=== PATIENT | male | born 1970 | race Hispanic/Latino ===

== ENCOUNTER 2019-10-31 09:39 | Inpatient (IN) | payer SELFPAY ==
[~2019-10-31 09:39] MED LIST: Lidocaine 1% PF 5 ML VIAL ONE; PROPOFOL 200 MG/20 ML VIAL ONE; Succinylcholine Chloride 20 MG/ML 10 ml SYRINGE FS ONE
[2019-10-31] MEDS ORDERED: Pantoprazole 80 MG, Admixture Fee 1 EACH in Sodium Chloride 0.9% 100 ML IVPB SCH (10:15)
[2019-10-31] MEDS ORDERED: Octreotide Acetate 1,250 MCG in Sodium Chloride 0.9% 250 ML 250 ML IVPB SCH (10:15)
--- NOTE | 2019-10-31 10:15 | RAD ---
Exam: Chest one view HISTORY:Upper GI bleed Comparison: None FINDINGS: Cardiac silhouette: Normal Aorta: Unremarkable Pulmonary vessels: Normal Costophrenic angles: Clear LUNGS: No masses or consolidation. Pneumothorax: None Osseous abnormalities: None IMPRESSION: No acute cardiopulmonary process.
[2019-10-31 10:25] LABS: INR-International Normal Ratio 1.5; PTT 32.2 sec (22.9-36.1); Prothrombin Time 17.9 sec (12.0-14.7)
[2019-10-31 10:42] LABS: ALT (SGPT) 18 U/L (8-55); AST (SGOT) 71 U/L (5-34); Acetaminophen Less than 6.0 mcg/mL (10.0-30.0); Albumin 3.2 g/dL (3.5-5.0); Alcohol Less than 10 mg/dL (Less than 10); Alkaline Phosphatase 170 U/L (40-110); Anion Gap 10 mmol/L (10-20); BUN (Urea Nitrogen) 13 mg/dL (8.4-25.7); Bilirubin, Total 1.6 mg/dL (0.2-1.2); CK (CPK) 99 U/L (30-200); Calc. Creatinine Clearance 0 mL/min (70-130); Calcium 7.9 mg/dL (7.8-10.44); Carbon Dioxide 23 mmol/L (22-29); Chloride 110 mmol/L (98-107); Estimated GFR-MDRD Greater than 90; Globulin 3.6 g/dL (2.4-3.5); Glucose 141 mg/dL (70-105); Lipase 18 U/L (8-78); Potassium 3.4 mmol/L (3.5-5.1); Protein, Total 6.8 g/dL (6.0-8.3); Salicylate Less than 8.0 mg/dL (15.0-30.0); Sodium 140 mmol/L (136-145)
[2019-10-31 10:43] LABS: Band 11 % (5-11); Hypochromia MODERATE=16-30 cells (100X) (0-5/hpf); Lymphocytes 11 % (21-51); MDiff Complete? YES; Mean Corpuscular Hemoglobin 25.1 pg (27.0-31.0); Mean Corpuscular Volume 81.2 fL (78.0-98.0); Mean Platelet Volume 10.3 fL (7.4-10.4); Monocytes 17 % (0-10); Neutrophil 61 % (42-75); Ovalocytes SLIGHT = 2-5 cells (100X) (0-1/hpf); Platelet Count 69 thou/uL (130-400); Platelet Morphology Comment Appears Decreased; Polychromasia SLIGHT = 2-3 cells (100X) (0-2/hpf); RBC Distribution Width 16.6 % (11.5-14.5); Red Blood Cell (RBC) Count 2.79 mill/uL (4.70-6.10); White Blood Cell (WBC) Count 4.9 thou/uL (4.8-10.8)
[2019-10-31 10:54] LABS: Bilirubin Negative (Negative); Blood, Urine Negative (Negative); Clarity Clear (Clear); Glucose, Urine (Dipstick) Normal (Negative); Ketone, Urine Negative (Negative); Leukocyte Negative Leu/uL (Negative); Nitrite Negative (Negative); Protein, Urine (Dipstick) Negative (Neg-Trace); Specific Gravity, Urine 1.034 (1.002-1.036); Urobilinogen Normal mg/dL (Less than 2)
[2019-10-31 11:07] LABS: Amphetamine Not Detected (NotDetected); Barbiturates Screen Not Detected (NotDetected); Benzodiazepine Screen Not Detected (NotDetected); Cocaine Metabolite Screen Not Detected (NotDetected); Medtox Control Line Valid? VALID (VALID); Medtox Reader # READER 4; Methadone Not Detected (NotDetected); Methamphetamine Not Detected (NotDetected); Opiate Screen Not Detected (NotDetected); Oxycodone Screen Not Detected (NotDetected); Phencyclidine (PCP) Not Detected (NotDetected); THC/Cannabinoid Screen Not Detected (NotDetected); Tricyclic Screen Not Detected (NotDetected)
[2019-10-31] MEDS ORDERED: Ondansetron PF 4 MG/2 ML Vial IVP PRN (11:35)
[2019-10-31] MEDS ORDERED: Bisacodyl 5 MG TAB PO PRN (11:35)
[2019-10-31] MEDS ORDERED: Multivitamins, Adult 10 ML, Folic Acid 1 MG, Thiamine HCl 100 MG in Dextrose 5 %-0.45 %... IV SCH (11:45)
[2019-10-31] MEDS: Multivitamins, Adult 10 ML, Folic Acid 1 MG, Thiamine HCl 100 MG in Dextrose 5 %-0.45 %... IV SCH (13:32)
[2019-10-31 14:10] LABS: Hemoglobin 6.7 g/dL (14.0-18.0)
[2019-10-31 14:17] VITALS: BMI 27.6
[2019-10-31] MEDS ORDERED: SUGAMMADEX SODIUM 200 MG/2 ML VIAL ONE (15:49)
--- NOTE | 2019-10-31 18:03 | HP ---
PRIMARY CARE PHYSICIAN: None. CHIEF COMPLAINT: "I was vomiting blood." HISTORY OF PRESENT ILLNESS: The patient is a 49-year-old male with no known past medical history, who presented to the ER in [place] after vomiting 8 times since 3:00 p.m. yesterday, bright red blood that then turned to a darker red. He states that he is also having abdominal pain. He denies any blood in his stool. He has not eaten any food in the past 2 days, denies any appetite. He states that he has had no sick contacts. He has not had any syncopal episodes, no chest pain, no associated shortness of breath. While in the [place] ER, it was charted that his hemoglobin was 5, they administered 2 units of blood and he had a CT of the abdomen which showed varicosities and cirrhosis and he was started on octreotide , given Rocephin and a Protonix drip was started and then he was transferred to [place]. In the ER today in [place] his vital signs have been stable; he had a negative drug screen. Urinalysis did not show anything acute for a urinary tract infection. Troponin was negative. They completed further lab work and a chest x-ray. In the ER in [place] he had a banana bag started, oxtreotide 50 mcg infusion, and Protonix 8 mg infusion. PAST MEDICAL HISTORY: None. PAST SURGICAL HISTORY: None. ALLERGIES: NO KNOWN DRUG ALLERGIES. MEDICATIONS: The patient does not currently take any medications. SOCIAL HISTORY: The patient lives at home with his . He is a final touch up painter. He denies any drug or tobacco use. He states that he drinks 3 tall beers per day. REVIEW OF SYSTEMS: All other review of systems are negative unless noted in the HPI. PHYSICAL EXAMINATION: VITAL SIGNS: Blood pressure 163/93, pulse 65, respiratory rate 16, temperature 98.9 orally , no pain, O2 saturations 100% on room air. GENERAL: The patient in no acute distress. HEENT: Head; atraumatic, normocephalic. PERRLA. Extraocular muscles intact. Sclerae are normal. Mouth; normal, moist mucosa. NECK: Trachea midline. No JVD. No lymphadenopathy. RESPIRATORY: Clear to auscultation bilaterally. Normal chest, symmetrical rise. No wheezes. No rhonchi. No rales. CARDIOVASCULAR: Regular rate and rhythm. No murmurs. No rubs or gallops. ABDOMEN: Bowel sounds normal. Moderate distention. No pulsatile masses. Slight tenderness upon deep palpation to the left upper quadrant. No hepatomegaly. EXTREMITIES: No cyanosis. No clubbing. No edema. SKIN: Warm and dry. Normal color. DIAGNOSTIC DATA: EKG, sinus rhythm, heart rate 73. Chest x-ray, no acute cardiopulmonary process. Labs in the [place] ER: Negative drug screen, unremarkable UA, negative troponin, white blood cells 4.9, hemoglobin 7, hematocrit 22.7, and platelets 69, bands 11, lipase 18, CK 99, sodium 140, potassium 3.4, chloride 110, BUN 13, creatinine 0.67, GFR greater than 90, glucose 141, bilirubin 1.6, albumin 3.2, AST 71, and alkaline phosphatase 170. PTT 32.2, prothrombin time 17.9, INR 1.5. Ammonia 65. IMPRESSION AND PLAN: 1. Gastrointestinal bleed with hematemesis. GI has been consulted to come see the patient. He is to receive 2 more units of blood. He is on octreotide and Protonix drip along with receiving a banana bag at this time. We will continue to monitor vital signs. He will be monitored on telemetry. 2. Daily alcohol use. We will monitor the patient for withdrawal symptoms using ASE protocol and follow lab work during duration of stay. 3. Acute anemia. We will trend H and H's along with receiving the 2 units of blood that has been ordered now. 4. Gastrointestinal and deep venous thrombosis prophylaxis in place. The patient wishes to be a full code. Surrogate decision maker is his , Linda Brannon. The patient has been discussed with Dr. Mckeon. Job ID: [id number] [facility]ENTER[facility]i
[2019-10-31] MEDS: Pantoprazole 80 MG in Sodium Chloride 0.9% 100 ML IVPB SCH (21:56)
[2019-11-01] MEDS: Octreotide Acetate 1,250 MCG in Sodium Chloride 0.9% 250 ML 250 ML IVPB SCH ×2 (01:38→15:48)
[2019-11-01 05:12] LABS: #Basophils 0.1 thou/uL (0.0-0.2); #Eosinphils 0.1 thou/uL (0.0-0.7); #Lymphocytes 0.8 thou/uL (1.20-3.40); #Monocytes 0.6 thou/uL (0.11-0.59); #Neutrophils 3.6 thou/uL (1.40-6.50); %Lymphocytes 16.1 % (21.0-51.0); %Monocytes 11.4 % (0.0-10.0); %Neutrophils 70.4 % (42.0-75.0); Hemoglobin 8.3 g/dL (14.0-18.0); Mean Corpuscular HGB CONC 32.3 g/dL (32.0-36.0); Mean Corpuscular Hemoglobin 26.4 pg (27.0-31.0); Mean Corpuscular Volume 81.7 fL (78.0-98.0); Mean Platelet Volume 11.3 fL (7.4-10.4); Platelet Count 66 thou/uL (130-400); RBC Distribution Width 16.6 % (11.5-14.5); Red Blood Cell (RBC) Count 3.16 mill/uL (4.70-6.10); White Blood Cell (WBC) Count 5.1 thou/uL (4.8-10.8)
[2019-11-01 05:23] LABS: Anion Gap 10 mmol/L (10-20); BUN (Urea Nitrogen) 10 mg/dL (8.4-25.7); Calc. Creatinine Clearance 143 mL/min (70-130); Calcium 7.8 mg/dL (7.8-10.44); Carbon Dioxide 21 mmol/L (22-29); Chloride 108 mmol/L (98-107); Estimated GFR-MDRD Greater than 90; Glucose 128 mg/dL (70-105); Potassium 3.2 mmol/L (3.5-5.1); Sodium 136 mmol/L (136-145)
--- NOTE | 2019-11-01 07:27 | CON ---
DATE OF CONSULTATION: 10/31/2019 REFERRING PHYSICIAN: Dr. Joel Mckeon. REASON FOR CONSULTATION: Hematemesis, anemia due to blood loss. HISTORY OF PRESENT ILLNESS: Mr. Shaquille Amin is a 49-year-old Latin-Comor[place] male, who had not seen a doctor for more than 10 years. The patient had no prior history of liver disease, heart disease, diabetes. He has not seen a doctor for the last 10 years. The patient does not take any medications at home. The patient does drink alcohol at least 3 cans of beer every day. The cans are very large and each can is about 25 ounces. Apparently, he has been doing this for many years. The patient had disease. The patient had an episode of nausea and vomiting and vomited some blood yesterday. He went initially to [place] [facility] and was seen by the ER MD. Abdominal CAT scan was done liver cirrhosis and also esophageal varices. The patient was anemic. He was given 1 unit of packed RBCs. As there was no GI available in [place], he was transferred to [facility] in [place]. The patient's blood count on arrival is hemoglobin 7. The patient has had no stool yesterday or today. The last negative stool was on Tuesday night. The patient never had any similar episodes in the past. The patient has no abdominal pain, no indigestion or any heartburn. No similar episodes in the past. There is no family history of liver disease. The patient had no relevant history. ALLERGIES: NO DRUG ALLERGIES. SOCIAL HISTORY: He does not smoke. Drinks alcohol three 25 ounce cans every day. No history of drug abuse. MEDICAL ILLNESSES: None. Denies history of any liver disease from before. Denies history of hepatitis in the past. No hypertension, diabetes, heart disease. PAST SURGICAL HISTORY: None. FAMILY HISTORY: Grandmother, diabetes mellitus. No family history of liver disease, any cancer, hypertension, diabetes.. REVIEW OF SYSTEMS: 10 point system review. CONSTITUTIONAL: No weight loss. No fever. Had good exercise tolerance. HEAD: No chronic headache, no dizziness. EYES: No diplopia. No impaired vision. EARS: No ear pain. No hearing loss. NOSE: No nosebleed. THROAT: No sore throat. LUNGS: No chronic coughing, hemoptysis, dyspnea. CARDIOVASCULAR: No chest pain. No palpitation. No dyspnea, orthopnea, PND. GI: As in history of present illness. : No dysuria or hematuria. MUSCULOSKELETAL: Not relevant. NEUROENDOCRINE: Not relevant. HEMATOLOGIC: Not relevant. PHYSICAL EXAMINATION: GENERAL: He is awake, alert, and communicative. The history was obtained through training generalist. He does not speak [place]. VITAL SIGNS: Temperature 99.1 degrees Fahrenheit, pulse is 69, blood pressure is 161/79. HEENT: Conjunctivae are clear. NECK: Supple. No adenitis or thyromegaly. CARDIOVASCULAR: Normal heart sounds. LUNGS: Clear to auscultation. ABDOMEN: Minimally tender over the epigastric area. There is no rebound or guarding. No organomegaly. No masses. Bowel sounds normal. EXTREMITIES: Reveal no edema. CENTRAL NERVOUS SYSTEM: Grossly within normal limits. LABORATORY DATA: On admission, WBC 4900, hemoglobin 7, hematocrit 22.7, MCV 81.2, platelet count is 69,000, polymorphs 61, bands 11, lymphocytes 11, monocytes 13. Repeat H and H at 1:43. Hemoglobin dropping to 6.7, hematocrit 20.4. Chemistry panel shows a BUN is normal at 13, potassium 3.4, chloride 110, creatinine is 0.67, glucose 141, calcium 7.9, bilirubin 1.6, AST 71, ALT 18, alkaline phosphatase 170. CPK is 99, albumin 3.2, lipase 18. Abdominal CAT scan done in the [place] ER showed evidence of liver cirrhosis and also esophageal varices. IMPRESSION: 1. A 49-year-old Latin-Comor[place] male with no prior history of any medical illnesses, presents with hematemesis and anemia. The patient had no prior history of liver disease. No prior history of hepatitis. The patient did drink alcohol heavy. He was drinking at least about 70 ounces of alcohol every day. He does have thrombocytopenia. CAT scan showing findings of liver cirrhosis. liver cirrhosis most likely from alcohol abuse. 2. Anemia due to blood loss. 3. Thrombocytopenia due to hypersplenism. RECOMMENDATION: 1. IV octreotide. 2. Transfuse 2 units of blood. 3. IV PPI. 4. EGD later on today and hopefully if still bleeding actively can probably some banding. This was explained to the patient through an training generalist. He is agreeable. Job ID: [id number]
[2019-11-01 07:46] LABS: Hemoglobin 8.1 g/dL (14.0-18.0)
[2019-11-01] MEDS: Pantoprazole 80 MG in Sodium Chloride 0.9% 100 ML IVPB SCH ×2 (09:27→19:51)
[2019-11-01] MEDS ORDERED: Potassium Chloride 40 MEQ in Premix Bag 1 BAG IVPB SCH (09:45)
[2019-11-01] MEDS: Multivitamins, Adult 10 ML, Folic Acid 1 MG, Thiamine HCl 100 MG in Dextrose 5 %-0.45 %... IV SCH (11:02)
[2019-11-01] MEDS: Potassium Chloride 20 MEQ in Premix Bag 1 BAG IVPB SCH ×2 (11:03→13:37)
--- NOTE | 2019-11-01 12:22 | OP ---
DATE OF PROCEDURE: 10/31/2019 OPERATIVE PROCEDURES: 1. Esophagogastroduodenoscopy. 2. Esophagogastroduodenoscopy with variceal banding. PREOPERATIVE DIAGNOSES: Gastrointestinal bleeding, anemia due to blood loss, and CT scan showing evidence of liver cirrhosis and esophageal varices. POSTOPERATIVE DIAGNOSES: 1. Two columns of 4+ varicosities in distal esophagus. 2. Portal hypertensive gastropathy. DESCRIPTION OF PROCEDURE: The patient was placed on his back and was given sedation and intubated by the Anesthesia Department. The patient was turned on his left lateral position. A bite block was placed. A Pentax video gastroscope under direct vision passed down the oropharynx, past the GE junction into the stomach and subsequently into descending duodenum. In the second part of the duodenum and duodenal bulb, no pathology seen. In the gastric antrum, gastric incisura and fundus, no lesion seen. There were no gastric varices seen. He did have portal hypertensive gastropathy. The scope was carefully withdrawn into esophagus. He was found to have two columns of 4+ varicosities. Positive active bleeding. The scope was withdrawn and removed. A variceal band ligator attached to the tip of the scope. Following this I could advance back into the esophagus, I could see a large amount of blood in the esophagus coming back into the throat especially on contraction. The scope was advanced into the stomach after . The area of bleeding was resolved here. A variceal band was applied and he continued to have bleeding. One more banding applied to the esophagus. Following this, the bleeding appears stopped. The residual blood was suctioned out. Water was irrigated and washed out. The gastroscope was carefully withdrawn back and forth and I could not see anymore bleeding. Two more variceal bandings applied with good hemostasis. The scope was removed. RECOMMENDATIONS: 1. N.p.o. for now. 2. Serial hemoglobin and hematocrit. 3. Continue IV octreotide. 4. Transfuse p.r.n. Job ID: [id number]
--- NOTE | 2019-11-01 13:57 | PRG ---
DATE OF SERVICE: 11/01/2019 SUBJECTIVE: This is a 49-year-old Latin-Burm[place] male, transferred from [facility] yesterday because of upper GI bleeding. The patient had not seen a doctor for nearly 10 years. He had no medical illnesses. No prior history of liver disease. He does drink alcohol at least three 25-cans of beer every day that comes almost to 6 packs of beer every day. He does not drink any hard liquor. The patient underwent EGD yesterday and was found to have portal hypertensive gastropathy and also 4+ varicosities. The patient had some bleeding during procedure and has to be banded. After banding, he did get no bleeding. At the end of the procedure, no bleeding was seen. He had done well overnight. The patient has had no nausea or vomiting. No abdominal pain. He has not had any stool. His blood count is stable around 8.1 to 8.3 over the last 3 times. Last one this morning was hemoglobin 8.2 and hematocrit 23.8. He offers no complaints. OBJECTIVE: GENERAL: Appears comfortable. VITAL SIGNS: Stable, afebrile, pulse is 66, blood pressure is 172/84. CARDIOVASCULAR SYSTEM: Normal heart sounds. LUNGS: Clear to auscultation. ABDOMEN: Distended, but soft. Abdomen is nontender. No organomegaly. No masses. CLINICAL IMPRESSION: 1. Liver cirrhosis due to alcohol abuse. 2. Portal hypertensive gastropathy. 3. Esophageal varices, status post banding. RECOMMENDATIONS: Continue IV octreotide until tomorrow afternoon. Taper of octreotide tomorrow and if he does well, can go home on the weekend on beta blockers. Dr. Rigo Lopez is on-call for the weekend and he will assume care from tomorrow morning. Job ID: [id number]
[2019-11-01 14:12] LABS: Hemoglobin 8.3 g/dL (14.0-18.0)
--- NOTE | 2019-11-01 15:11 | PDOC.HOSPP ---
- Subjective Encounter Date: 11/01/19 Subjective: Patient reports she is feeling well. He understands need to quit drinking alcohol. Denies any specific abdominal pain. - Objective Vital Signs & Weight: Vital Signs (12 hours) Temp Pulse Resp BP BP Pulse Ox 11/01/19 12:10 172/81 H 11/01/19 11:40 98.5 F 66 15 172/81 H 98 11/01/19 08:10 158/77 H 11/01/19 07:53 98.7 F 69 13 158/77 H 98 11/01/19 07:51 98 11/01/19 04:00 100.0 F H 81 18 159/83 H 159/83 H 96 Weight Admit Weight 171 lb 4.8 oz Weight 171 lb 4.8 oz I&O: 10/31/19 11/01/19 11/02/19 06:59 06:59 06:59 Intake Total 1105 240 Output Total 1250 1080 Balance -145 840 Result Diagrams: 11/01/19 14:05 11/01/19 04:38 Hospitalist ROS - Medication Medications: Active Medications Generic Name Dose Route Start Last Admin Trade Name Freq PRN Reason Stop Dose Admin Multivitamins 10 ml/ Folic 1,011.2 mls @ 125 mls/hr 10/31/19 10:15 11/01/19 11:02 Acid 1 mg/ Thiamine HCl 100 mg IV 1,011.2 mls / Dextrose/Sodium Chloride Q24HR REYES Administration As Directed Octreotide Acetate 1,250 mcg/ 251.25 mls @ 20.1 mls/hr 10/31/19 11:45 01:38 Sodium Chloride IVPB 251.25 mls INF REYES Administration 100 MCG/HR Pantoprazole Sodium 80 mg/ 100 mls @ 10 mls/hr 10/31/19 11:45 11/01/19 09:27 Sodium Chloride IVPB 100 mls INF REYES Administration - Exam General Appearance: NAD, awake alert Heart: RRR, no murmur, no gallops, no rubs, normal peripheral pulses Respiratory: CTAB, no wheezes, no rales, no ronchi, normal chest expansion, no tachypnea, normal percussion Gastrointestinal: soft, non-tender, non-distended, normal bowel sounds, no palpable masses, no hepatomegaly, no splenomegaly, no bruit Extremities: no cyanosis, no clubbing, no edema Skin: normal turgor Musculoskeletal: normal tone Psychiatric: normal affect, normal behavior, A&O x 3 Hosp A/P (1) Upper GI bleed Code(s): K92.2 - GASTROINTESTINAL HEMORRHAGE, UNSPECIFIED Status: Acute (2) Cirrhosis Code(s): K74.60 - UNSPECIFIED CIRRHOSIS OF LIVER Status: Acute (3) Alcohol abuse Code(s): F10.10 - ALCOHOL ABUSE, UNCOMPLICATED Status: Acute (4) Esophageal varices Code(s): I85.00 - ESOPHAGEAL VARICES WITHOUT BLEEDING Status: Acute (5) Acute blood loss anemia Code(s): D62 - ACUTE POSTHEMORRHAGIC ANEMIA Status: Acute (6) Hypokalemia Code(s): E87.6 - HYPOKALEMIA Status: Acute (7) Thrombocytopenia Code(s): D69.6 - THROMBOCYTOPENIA, UNSPECIFIED Status: Acute - Plan Upper GI bleed: Secondary to esophageal varices. Hemoglobin appears to be stable at this point. Continue to follow H&H's. Esophageal varices: During endoscopy the patient had banding of several esophageal varices. No evidence of active bleeding. He will need to be on beta-jace once the octreotide is tapered. Continue octreotide for now. Appreciate GI consult. Acute blood loss anemia: Again, hemoglobin appears to be relatively stable at this point. Does not appear to have further bleeding. Continue to follow. Cirrhosis: Secondary to alcohol abuse. Alcohol abuse: Patient clearly understands the need to discontinue use of alcohol at this point. Continue with banana bag. Hypokalemia: Oral repletion. Thrombocytopenia: Secondary to cirrhosis and likely hypersplenism.
[2019-11-02] MEDS: Octreotide Acetate 1,250 MCG in Sodium Chloride 0.9% 250 ML 250 ML IVPB SCH ×2 (04:33→18:38)
[2019-11-02] MEDS: Pantoprazole 80 MG in Sodium Chloride 0.9% 100 ML IVPB SCH ×2 (04:33→18:36)
[2019-11-02 04:57] LABS: #Eosinphils 0.1 thou/uL (0.0-0.7); #Monocytes 0.7 thou/uL (0.11-0.59); #Neutrophils 3.2 thou/uL (1.40-6.50); %Basophils 0.9 % (0.0-1.0); %Eosinophils 1.6 % (0.0-10.0); %Lymphocytes 19.8 % (21.0-51.0); %Monocytes 13.3 % (0.0-10.0); %Neutrophils 64.3 % (42.0-75.0); Hemoglobin 8.3 g/dL (14.0-18.0); Mean Corpuscular HGB CONC 32.3 g/dL (32.0-36.0); Mean Corpuscular Hemoglobin 26.4 pg (27.0-31.0); Mean Corpuscular Volume 81.7 fL (78.0-98.0); Mean Platelet Volume 11.5 fL (7.4-10.4); Platelet Count 63 thou/uL (130-400); RBC Distribution Width 17.1 % (11.5-14.5); Red Blood Cell (RBC) Count 3.14 mill/uL (4.70-6.10); White Blood Cell (WBC) Count 4.9 thou/uL (4.8-10.8)
[2019-11-02 05:11] LABS: Anion Gap 9 mmol/L (10-20); BUN (Urea Nitrogen) 6 mg/dL (8.4-25.7); Calc. Creatinine Clearance 152 mL/min (70-130); Calcium 7.6 mg/dL (7.8-10.44); Carbon Dioxide 23 mmol/L (22-29); Chloride 103 mmol/L (98-107); Estimated GFR-MDRD Greater than 90; Glucose 126 mg/dL (70-105); Potassium 3.2 mmol/L (3.5-5.1); Sodium 132 mmol/L (136-145)
--- NOTE | 2019-11-02 11:08 | PDOC.HOSPP ---
- Subjective Encounter Date: 11/02/19 Subjective: Patient feels well. Denies any symptoms or any pain. He is eager to go home because he has a child at home. - Objective Vital Signs & Weight: Vital Signs (12 hours) Temp Pulse Resp BP BP Pulse Ox 11/02/19 07:29 99.5 F 73 13 152/76 H 97 11/02/19 04:00 159/77 H 11/02/19 03:46 98.2 F 78 18 159/77 H 96 Weight Admit Weight 171 lb 4.8 oz Weight 171 lb 4.8 oz I&O: 11/01/19 11/02/19 11/03/19 06:59 06:59 06:59 Intake Total 1105 2314 120 Output Total 1250 2380 400 Balance -145 -66 -280 Result Diagrams: 11/02/19 04:14 11/02/19 04:14 Hospitalist ROS - Medication Medications: Active Medications Generic Name Dose Route Start Last Admin Trade Name Freq PRN Reason Stop Dose Admin Multivitamins 10 ml/ Folic 1,011.2 mls @ 125 mls/hr 10/31/19 10:15 11/01/19 11:02 Acid 1 mg/ Thiamine HCl 100 mg IV 1,011.2 mls / Dextrose/Sodium Chloride Q24HR REYES Administration As Directed Octreotide Acetate 1,250 mcg/ 251.25 mls @ 20.1 mls/hr 10/31/19 11:45 04:33 Sodium Chloride IVPB 251.25 mls INF REYES Administration 100 MCG/HR Pantoprazole Sodium 80 mg/ 100 mls @ 10 mls/hr 10/31/19 11:45 11/02/19 04:33 Sodium Chloride IVPB 100 mls INF REYES Administration Sodium Chloride 10 ml 11/01/19 21:00 11/02/19 10:06 Flush - Normal Saline IVF Not Given Q12HR REYES - Exam General Appearance: NAD, awake alert Heart: RRR, no murmur, no gallops, no rubs, normal peripheral pulses Respiratory: CTAB, no wheezes, no rales, no ronchi, normal chest expansion, no tachypnea, normal percussion Gastrointestinal: soft, non-tender, non-distended, normal bowel sounds, no palpable masses, no hepatomegaly, no splenomegaly, no bruit Skin: normal turgor, no lesions, no rashes Neurological: no focal deficits Musculoskeletal: normal tone Psychiatric: normal affect, normal behavior, A&O x 3 Hosp A/P (1) Upper GI bleed Code(s): K92.2 - GASTROINTESTINAL HEMORRHAGE, UNSPECIFIED Status: Acute (2) Cirrhosis Code(s): K74.60 - UNSPECIFIED CIRRHOSIS OF LIVER Status: Acute (3) Alcohol abuse Code(s): F10.10 - ALCOHOL ABUSE, UNCOMPLICATED Status: Acute (4) Esophageal varices Code(s): I85.00 - ESOPHAGEAL VARICES WITHOUT BLEEDING Status: Acute (5) Acute blood loss anemia Code(s): D62 - ACUTE POSTHEMORRHAGIC ANEMIA Status: Acute (6) Hypokalemia Code(s): E87.6 - HYPOKALEMIA Status: Acute (7) Thrombocytopenia Code(s): D69.6 - THROMBOCYTOPENIA, UNSPECIFIED Status: Acute - Plan Upper GI bleed: Secondary to esophageal varices. Hemoglobin appears to be stable at this point. Continue to follow H&H's. Esophageal varices: During endoscopy the patient had banding of several esophageal varices. No evidence of active bleeding. He will need to be on beta-jace once the octreotide is tapered. Plan for GI appears to be to continue the octreotide till this afternoon and then taper it. Acute blood loss anemia: Again, hemoglobin appears to be relatively stable at this point. Does not appear to have further bleeding. Continue to follow. Cirrhosis: Secondary to alcohol abuse. Alcohol abuse: Patient clearly understands the need to discontinue use of alcohol at this point. Continue with banana bag. Hypokalemia: Oral repletion. Thrombocytopenia: Secondary to cirrhosis and likely hypersplenism.
[2019-11-02] MEDS: Multivitamins, Adult 10 ML, Folic Acid 1 MG, Thiamine HCl 100 MG in Dextrose 5 %-0.45 %... IV SCH (11:15)
--- NOTE | 2019-11-02 19:26 | PRG ---
DATE OF SERVICE: 11/02/2019 SUBJECTIVE: This is a GI followup. He has had no bleeding. He is eating a regular diet. Chest pain resolved. OBJECTIVE: VITAL SIGNS: Temperature 99.6, max 98 now, was 100 yesterday; blood pressure 163/83; pulse 65, respiratory rate 16. ABDOMEN: Soft, nontender. LUNGS: Clear. LABORATORY DATA: White count 4.9, hemoglobin 8.3, platelet count 63,000. INR 1.5 on 1st. Sodium 132, potassium 3.2, BUN and creatinine are 6 and 0.63. His bilirubin was 1.6 on 1st with AST and ALT of 71 and 80 and the alkaline phosphatase 170. ASSESSMENT: 1. Gastrointestinal hemorrhage secondary to varicocele bleeding, status post esophagogastroduodenoscopy on 10/30. He is doing well. I think we can wean off the octreotide. 2. No signs of bleeding. We will stop Protonix drip and place him on Protonix IV q.12. 3. Recommend the patient avoid drinking all together. Hopefully, he can go home tomorrow if he remains stable. Job ID: [id number]
[2019-11-03] MEDS ORDERED: Octreotide Acetate 1,250 MCG in Sodium Chloride 0.9% 250 ML 250 ML IVPB SCH (00:30)
[2019-11-03 08:10] VITALS: BP 158/77; TEMP 98.3
--- NOTE | 2019-11-03 23:16 | DIS ---
DATE OF ADMISSION: 10/31/2019 DATE OF DISCHARGE: 11/03/2019 DISCHARGE DIAGNOSES: 1. Gastrointestinal bleed. 2. Esophageal varices. 3. Acute blood loss anemia. 4. Cirrhosis. 5. Alcohol abuse. 6. Hypokalemia. 7. Thrombocytopenia. HISTORY OF PRESENT ILLNESS: The patient is a 49-year-old male, who was actually transferred to this facility from [facility], where the patient had presented with GI bleed. The patient apparently was having some hematemesis, not eaten for a couple of days. He presented to the emergency department and was found to have hemoglobin of 5. He had a couple units of blood, had a CT which showed varices and cirrhosis. He was started on Rocephin and octreotide and transferred to our facility. He was also given Protonix. The patient was unaware of having had any prior problems related to liver disease, although he did admit to drinking a number of beers per day. HOSPITAL COURSE: The patient was admitted. He was promptly seen in consultation by GI, who took him to the endoscopy suite the day of admission and did upper endoscopy revealing two columns of 4+ varicosities in the distal esophagus, as well as a portal hypertensive gastropathy. Varices were banded. The patient was subsequently monitored and his hemoglobin stayed between 8 and 8.5. He was asymptomatic. He was able to go on to clear liquids and then a full diet without any difficulty. He remained on the octreotide drip for 24 hours and then tapered off. He maintained a PPI and again his vitals remained stable. With that, he was felt to be stable for discharge to home and follow up as an outpatient. PHYSICAL EXAMINATION: VITAL SIGNS: At the day of discharge, temperature was 98.3, pulse 77, respirations 16, O2 saturation 97% on room air, BP 158/77. GENERAL: He was awake and alert. HEART: Regular rate and rhythm. LUNGS: Clear bilaterally. ABDOMEN: Benign. EXTREMITIES: No cyanosis, clubbing, or edema. DISPOSITION: The patient is discharged home. DIET: He is to have a regular diet. ACTIVITY: As tolerated. He was counseled at length to avoid future alcohol and he understands that completely. He is to establish with a primary care provider. MEDICATIONS: He will continue with: 1. Pantoprazole 40 mg daily. 2. Propranolol 10 mg b.i.d. 3. Thiamine 100 mg daily over the counter. FOLLOWUP: He can follow up at this facility should he have any need to do so going forward. He is to follow up with Dr. Beavers in 14 days, so that he can have repeat endoscopy and repeat banding procedure. TIME SPENT: Time spent in discharge activities was less than 30 minutes. Job ID: [id number]
== END 2019-11-03 11:40 | disposition home or self-care (01) | DRG 432 ==
LOC: ERS 09:39 → 2NO 11:33
PROVIDERS: ADMIT Internal Medicine; ATTEND Internal Medicine
PROC: 30233N1 Transfusion of Nonautologous Red Blood Cells into Peripheral Vein, Percutaneous Approach (ICD-10-PCS; principal; 2019-10-31)
PROC: 06L38CZ Occlusion of Esophageal Vein with Extraluminal Device, Via Natural or Artificial Opening Endoscopic (ICD-10-PCS; 2019-10-31)
DX: K70.30 Alcoholic cirrhosis of liver without ascites (principal); I85.11 Secondary esophageal varices with bleeding; K76.6 Portal hypertension; D62 Acute posthemorrhagic anemia; K31.89 Other diseases of stomach and duodenum; F10.10 Alcohol abuse, uncomplicated; E87.6 Hypokalemia; D73.1 Hypersplenism; D69.59 Other secondary thrombocytopenia
CPT/HCPCS: 36415; 36430; 71045; 80048; 80053; 80306; 80307; 81003; 82140; 82550; 83690; 84484; 85025; 85610; 85730; 86850; 86900; 86901; 90471; 90732; 93005; 96361; 96365; 96366; C9113; G0009; J2001; J2354; J2704; J3411; J3480; J3490; J7042; J7050; P9016